=== PATIENT | male | born 1950 | race Caucasian/White ===

== ENCOUNTER 2019-08-22 12:22 | Observation (INO) | payer MEDICARE, BC ==
[~2019-08-22] VITALS: Ht 182.9 cm; Wt 122.5 kg
[2019-08-22 12:50] LABS: BASO # 0.1 (0.0-0.2); EOS # 0.1 (0.0-0.7); EOS % 1.6 % (0-4.0); GRAN # 4.8 (1.4-6.5); GRAN % 69.4 % (42.2-75.2); HEMATOCRIT 50.5 % (42.0-52.0); HEMOGLOBIN 17.8 g/dl (13.5-18.0); LYMPH # 1.4 (1.2-3.4); LYMPH % 20.1 % (20.0-51.0); MEAN CELL VOLUME 92 fl (80.0-100.0); MEAN CORPUSCULAR HEMOGLOBIN 33 pg (27.0-31.0); MEAN CORPUSCULAR HGB CONC 35 g/dl (33.0-37.0); MEAN PLATELET VOLUME 10.6 fl (7.4-10.4); MONO # 0.5 (0.1-0.6); MONO % 7.6 % (1.7-9.3); PLATELET COUNT 217 K/mm3 (130-400); RED BLOOD COUNT 5.48 M/mm3 (4.20-5.60); REDCELL DISTRIBUTION WIDTH-CV 12.2 % (11.5-14.5)
[2019-08-22] MEDS ORDERED: LIPITOR 40MG TA40 MG PO (12:51)
[2019-08-22] MEDS ORDERED: PLAVIX 75MG TAB75 MG PO (12:51)
[2019-08-22] MEDS ORDERED: ACCUPRIL20TAB PO (12:52)
[2019-08-22] MEDS ORDERED: NOVOLOG 100U100 U/M1 SQ (12:53)
[2019-08-22 12:54] LABS: PROTHROMBIN TIME 11.6 SECONDS (9.7-12.8)
[2019-08-22] MEDS ORDERED: BASAGLAR K100 UNIT/1 SQ (12:54)
[2019-08-22 13:04] LABS: ALANINE AMINOTRANSFERASE 31 U/L (21-72); ALBUMIN 4.6 gm/dL (3.5-5.0); ALKALINE PHOSPHATASE 89 U/L (50-136); ANION GAP 15 mmol/L (7-16); AST,SGOT 31 U/L (15-37); BILIRUBIN,TOTAL 1.1 mg/dL (0.0-1.0); BLOOD UREA NITROGEN 17 mg/dL (9-20); CALCIUM 9.7 mg/dL (8.4-10.2); CARBON DIOXIDE 24 mmol/L (22-30); CHLORIDE 98 mmol/L (98-107); CREATININE, serum 1.03 (0.66-1.25); GLUCOSE 288 mg/dL (74-106); LIPASE 243 U/L (23-300); POTASSIUM 3.8 mmol/L (3.4-5.0); SODIUM 137 mmol/L (137-145); TOTAL PROTEIN 7.9 gm/dL (6.4-8.2)
[2019-08-22] MEDS ORDERED: LIDODERM 5% PATC1 EA TP (13:15)
[2019-08-22] MEDS ORDERED: FLEXERIL 1010 MG/TAB PO (13:15)
[2019-08-22 13:21] LABS: TROPONIN-I < 0.012 ng/mL (0.000-0.035)
[2019-08-22 13:30] LABS: COLLECTION METHOD CLEAN CATCH
[2019-08-22 13:40] LABS: PH 6 (5-8); SQUAMOUS EPITHELIAL None Seen /hpf; URINE APPEARANCE Clear; URINE BACTERIA None Seen /hpf; URINE BILIRUBIN Negative (NEGATIVE); URINE BLOOD Negative (NEGATIVE); URINE COLOR Yellow; URINE GLUCOSE 3+ (NEGATIVE); URINE KETONE Negative (NEGATIVE); URINE LEUKOCYTE ESTERASE Negative (NEGATIVE); URINE NITRATE Negative (NEGATIVE); URINE PROTEIN(semi-quant) Negative (NEGATIVE); URINE RBC None Seen /hpf; URINE UROBILINOGEN Negative (NEGATIVE)
[2019-08-22 17:15] VITALS: BP 124/39; PULSE 93; TEMP 98.1
[2019-08-22 17:17] VITALS: BP 124/39; PULSE 93; TEMP 98.1
--- NOTE | 2019-08-22 20:20 | NUR ---
Resting in bed. Assessment complete. Lungs clear. Heart sounds normal. Bowels active x4. Pulses strong throughout. No edema noted. Reports 5/10 pain in lower back provided with PRN toradol. Refusing HS levemir-"not what I taken at home." Educated patient regarding substitutions. Continued to refused. Denies other needs at this time. Call light in reach.
[2019-08-22 20:35] VITALS: BP 144/73; PULSE 88; TEMP 98.6
[2019-08-22 23:49] VITALS: BP 159/79; PULSE 78; TEMP 97.6
--- NOTE | 2019-08-22 23:50 | NUR ---
Resting in bed. Provided with PRN dilaudid at this time. Denies other needs. Call light in reach.
[2019-08-23 04:18] VITALS: BP 157/85; PULSE 82; TEMP 97.7
--- NOTE | 2019-08-23 04:57 | NUR ---
Resting in bed. Refused norflex, states "does not work." Requested dilaudid. Denies other needs at this time. Call light in reach.
--- NOTE | 2019-08-23 06:28 | NUR ---
Patient required x2 doses of dilaudid throughout night. Otherwise uneventful. Resting in bed this AM. Call light in reach.
--- NOTE | 2019-08-23 07:17 | NUR ---
Report given to EDUARDO Lara
[2019-08-23 08:11] VITALS: BP 148/67; PULSE 82; TEMP 97.6
[2019-08-23 08:18] LABS: BASO # 0.1 (0.0-0.2); BASO % 0.9 % (0.0-2.0); EOS # 0.2 (0.0-0.7); EOS % 2.2 % (0-4.0); GRAN # 4.9 (1.4-6.5); LYMPH # 1.1 (1.2-3.4); LYMPH % 16.2 % (20.0-51.0); MEAN CELL VOLUME 93 fl (80.0-100.0); MEAN CORPUSCULAR HGB CONC 35 g/dl (33.0-37.0); MEAN PLATELET VOLUME 10.5 fl (7.4-10.4); MONO # 0.4 (0.1-0.6); MONO % 6.4 % (1.7-9.3); PLATELET COUNT 180 K/mm3 (130-400); RED BLOOD COUNT 5.63 M/mm3 (4.20-5.60); REDCELL DISTRIBUTION WIDTH-CV 12.3 % (11.5-14.5)
[2019-08-23 08:24] LABS: HEMATOCRIT 52.1 % (42.0-52.0); HEMOGLOBIN 18.2 g/dl (13.5-18.0); MEAN CORPUSCULAR HEMOGLOBIN 32 pg (27.0-31.0)
[2019-08-23 08:51] LABS: CALCIUM 9.1 mg/dL (8.4-10.2)
[2019-08-23 11:54] VITALS: BP 96/78; PULSE 109
[2019-08-23 11:59] VITALS: BP 164/71; PULSE 91; TEMP 97.2
[2019-08-23] MEDS ORDERED: NORCO 325 MG-51 TAB PO (12:56)
[2019-08-23] MEDS ORDERED: Lidocaine 4% Patch TP (12:58)
[2019-08-23] MEDS ORDERED: NORFLEX 10100 MG/TAB PO (12:59)
--- NOTE | 2019-08-23 14:18 | NUR ---
Discharge information/instructions taken to patient, he declined to review instructions. Did give follow up appointments and he said whatever, they know me. IV discontinued. Assisted to private vehicle via wheelchair. He did briefly stop at nurses station and said that his inusrance would not cover the norflex and asked if he could have different medication called in for him. Did ask him to wait while I talk to the providers and he stated that his son was waiting for him and he left. I did place call to provider and they said they would take care of it.
[2019-08-23] MEDS ORDERED: FLEXERIL 1010 MG/TAB PO (14:23)
== END 2019-08-23 14:10 | disposition home or self-care (01) ==
LOC: COL.ER 12:22 → MEDICAL 14:30
PROVIDERS: Emergency Medicine; ADMIT Student in an Organized Health Care Education/Training Program
DX: M51.27 Other intervertebral disc displacement, lumbosacral region (principal); E78.5 Hyperlipidemia, unspecified; I25.10 Atherosclerotic heart disease of native coronary artery without angina pectoris; I10 Essential (primary) hypertension; Z79.82 Long term (current) use of aspirin; Z79.02 Long term (current) use of antithrombotics/antiplatelets; Z79.4 Long term (current) use of insulin
CPT/HCPCS: G0378; J1170; J1815; J1885; J2060; J2270; J2360; J2405; J7030